=== PATIENT | male | born 1960 | race Caucasian/White ===

== ENCOUNTER 2017-03-31 09:20 | Outpatient (CLI) | payer BC | END 2017-03-31 09:21 | disposition home or self-care (01) | LOC: BICRAD 09:20 | PROVIDERS: ATTEND Family Medicine | DX: M54.9 Dorsalgia, unspecified (principal); M47.896 Other spondylosis, lumbar region; I70.90 Unspecified atherosclerosis | CPT/HCPCS: 36415; 72100; 80053; 84153; 84270; 84403; 84443; 85025 ==

== ENCOUNTER 2019-01-03 11:34 | Outpatient (CLI) | payer BC ==
--- NOTE | 2019-01-03 12:23 | RAD ---
2 VIEWS CHEST: Date: 01/03/19 COMPARISON: 11/29/16. HISTORY: Dyspnea and viral upper respiratory infection. FINDINGS: Two views of the chest show normal sized cardiomediastinal silhouette. There is no evidence of consol idation, mass, or pleural effusion. The bones are unremarkable. IMPRESSION: No evidence of acute cardiopulmonary disease. POS: [facility]
== END 2019-01-03 11:35 | disposition home or self-care (01) ==
LOC: BICRAD 11:34
PROVIDERS: ATTEND Family Medicine
DX: J06.9 Acute upper respiratory infection, unspecified (principal)
CPT/HCPCS: 36415; 71046; 80061; 80076

== ENCOUNTER 2019-06-18 11:40 | Outpatient (CLI) | payer BC ==
--- NOTE | 2019-06-18 12:53 | RAD ---
XR Foot Rt 3 View STANDARD History: Injury. Comparison: None. Findings: Minimally displaced fracture of the third metatarsal head with likely a small intra-articul ar component. Mild interphalangeal joint space narrowing. Mild degenerative disease of the great toe metatarsophala ngeal joint. Type II navicular ossicle. Os peroneum is present. Impression: Minimally displaced fracture third toe metatarsal head with likely a small intra-articula r component.
== END 2019-06-18 11:41 | disposition home or self-care (01) ==
LOC: BICRAD 11:40
PROVIDERS: ATTEND Podiatrist
DX: S92.301A Fracture of unspecified metatarsal bone(s), right foot, initial encounter for closed fracture (principal); S92.501A Displaced unspecified fracture of right lesser toe(s), initial encounter for closed fracture

== ENCOUNTER 2022-06-11 09:35 | Outpatient (CLI) | payer OTHER | END 2022-06-11 09:36 | disposition home or self-care (01) | LOC: BICRAD 09:35 | PROVIDERS: ATTEND Family Medicine | DX: R06.02 Shortness of breath (principal) | CPT/HCPCS: 71046 ==

== ENCOUNTER 2022-07-22 15:11 | Emergency (ER) | payer OTHER ==
[2022-07-22 15:44] LABS: #Basophils 0.1 thou/uL (0.0-0.2); #Eosinphils 0.1 thou/uL (0.0-0.7); #Lymphocytes 2.3 thou/uL (1.20-3.40); #Monocytes 1.3 thou/uL (0.11-0.59); #Neutrophils 7.2 thou/uL (1.40-6.50); %Basophils 0.7 % (0.0-1.0); %Lymphocytes 20.7 % (21.0-51.0); %Monocytes 12.2 % (0.0-10.0); %Neutrophils 65.5 % (42.0-75.0); Hemoglobin 14.4 g/dL (14.0-18.0); Mean Corpuscular HGB CONC 35.5 g/dL (32.0-36.0); Mean Corpuscular Hemoglobin 34.1 pg (27.0-31.0); Mean Corpuscular Volume 96.1 fl (78.0-98.0); Mean Platelet Volume 8.4 fL (7.4-10.4); Platelet Count 220 10x3/uL (130-400); RBC Distribution Width 11.7 % (11.5-14.5); Red Blood Cell (RBC) Count 4.23 mill/uL (4.70-6.10)
[2022-07-22] MEDS ORDERED: Iopamidol-370 76% 500 ML MDV (1 ML CHARGE) ONE (15:44)
[2022-07-22 16:02] LABS: Bacteria/HPF None Seen HPF (None Seen); Bilirubin Negative (Negative); Blood, Urine 2+ (Negative); Clarity Turbid (Clear); Glucose, Urine (Dipstick) Normal (Negative); Ketone, Urine Trace mg/dL (Negative); Leukocyte 500 Leu/uL (Negative); Nitrite 2+ (Negative); Protein, Urine (Dipstick) 100 mg/dL (Neg-Trace); Specific Gravity, Urine 1.024 (1.002-1.036); Squamous Epithelial 0-3 HPF (0-3); Urobilinogen Normal mg/dL (Less than 2); WBC/HPF Greater than 50 HPF (0-3)
[2022-07-22 16:07] LABS: ALT (SGPT) 44 U/L (8-55); AST (SGOT) 35 U/L (5-34); Albumin 4.4 g/dL (3.4-4.8); Alkaline Phosphatase 117 U/L (40-110); Anion Gap 16 mmol/L (10-20); BUN (Urea Nitrogen) 9 mg/dL (8.4-25.7); Bilirubin, Total 0.4 mg/dL (0.2-1.2); Calc. Creatinine Clearance 0 mL/min (70-130); Calcium 9.1 mg/dL (7.8-10.44); Carbon Dioxide 25 mmol/L (23-31); Chloride 103 mmol/L (98-107); Estimated GFR 99; Globulin 3.5 g/dL (2.4-3.5); Glucose 97 mg/dL (80-115); Potassium 3.7 mmol/L (3.5-5.1); Protein, Total 7.9 g/dL (5.8-8.1); Sodium 140 mmol/L (136-145)
[2022-07-22] MEDS ORDERED: Ketorolac Tromethamine 30 MG/ML VIAL ONE (16:16)
[2022-07-22] MEDS ORDERED: cefTRIAXone (ROCEPHIN) 1 GM VIAL ONE (16:37)
== END 2022-07-22 18:00 | disposition home or self-care (01) ==
LOC: ERS 15:11
DX: N30.01 Acute cystitis with hematuria (principal); K21.9 Gastro-esophageal reflux disease without esophagitis; I10 Essential (primary) hypertension; E78.00 Pure hypercholesterolemia, unspecified; Z87.891 Personal history of nicotine dependence
CPT/HCPCS: 36415; 74177; 80053; 81003; 81015; 85025; 87077; 87086; 87186; 96365; 96372; J0696; J1885; Q9967